=== PATIENT | male | born 1980 ===

== ENCOUNTER 2020-05-29 12:08 | Inpatient (IN) | payer BC ==
[~2020-05-29] VITALS: Ht 170.2 cm; Wt 109.8 kg
[2020-05-29 15:00] VITALS: BP 148/96
[2020-05-29 17:15] VITALS: BP 136/93
--- NOTE | 2020-05-29 17:31 | PCM.HP ---
History of Present Illness Reason for Visit: Transfer from outside ED for bilateral PE's History of Present Illness Pt is a 39 y/o M with no significant past medical history, who presents from outside ED with Bilateral PE's. Pt states for the last 4-5 days he has been increasingly short of breath and easily fatigued. 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 He states that the morning of 05/29 he woke up and exercised a bit, but became intensely short of breath and decided to go to the ED. COVID testing at the ED was negative and a CTA was obtained that revealed multiple bilateral PE's L > R. He was slightly hypoxemic at the outside ED and required 2-3 L O2 to maintain sats. Otherwise, he was afebrile and Hemodynamically stable. He was subsequently transferred to this facility for further management and evaluation given hypoxemia and need for supplemental O2. since arrival here, he has continued to be hypoxemic, but remains afebrile and HDS. He denies symptoms of CP, Palpitations, shob, cough, abdominal pain, n/v/d/c, or urinary symptoms. He denies any recent surgeries, trauma, travel, known malignancies, history of VTE, hormone supplementation, recent immobility, or other risk factors for provoked VTE. He denies any known personal or family history of hypercoagulable disorders, but does note that one of his grandfathers had PE's. He does mention having brief pain in his right calf while walking in his neighborhood at some point in the last week as well as a pain on the inside of his left hip that he could not explain. These were self-limited and resolved fairly quickly, however, and have not been a persistent issue. Review of Systems Constitutional: No: Fever, Chills, Sweats, Weakness, Malaise Eyes: No: Pain, Vision change, Conjunctivae inflammation ENT: No: Ear pain, Ear discharge, Nose pain Respiratory: Shortness of breath, SOB with excertion; No: Cough Cardiovascular: No: Chest Pain, Palpitations, Orthopnea, Paroxysmal Noc. Dyspnea Gastrointestinal: No: Nausea, Vomiting, Abdominal Pain Genitourinary: No Dysuria, No Frequency, No Incontinence Musculoskeletal: No: other, neck pain, shoulder pain, arm pain Skin: No: Rash, Lesions, Jaundice, Bruising Neurological: No: Weakness, Numbness, Incoordination, Change in speech VTE VTE Risk Score VTE Risk: Score 0-1 = Low Risk (Aggressive mobilization; early ambulation; no VTE prophylaxis required) Score 2: Moderate Risk (Intermittent/Pneumatic Compression Device OR Lovenox/Heparin/Coumadin) Score 3-4: High Risk (Intermittent/Pneumatic Compression Device AND Lovenox/Heparin/Coumadin) Score > or =5: Highest Risk (Intermittent/Pneumatic Compression Device AND Lovenox/Heparin/Coumadin) Exam Vital Signs Vital Signs Date Time Temp Pulse Resp B/P (MAP) Pulse Ox O2 Delivery O2 Flow Rate FiO2 05/29/20 17:16 Nasal Cannula 2.00 05/29/20 15:00 98.9 60 16 148/96 (113) 99 General Appearance: Alert, Oriented X3, Cooperative, No acute distress HEENT: Atraumatic, PERRLA Respiratory: Clear to auscultation, Normal air movement Cardiovascular: Regular rate, Normal S1, Normal S2 Abdominal: Normal bowel sounds, Soft, No tenderness Extremities: No clubbing, No cyanosis, No edema Skin: No rash Neuro: Normal speech, Strength at 5/5 X4 ext, Normal tone, Sensation intact Psych/Mental Status: Mental status NL, Mood NL Assessment/Plan Assessment/Plan Assessment/Plan Pt is a 39 y/o M with no significant past medical history, who presents from outside ED with Bilateral PE's. There does not appear to be an obvious provoking factor to his PE, so I would consider these to be unprovoked until proven otherwise. He has no known history of hypercoagulable disorders. He was started on Lovenox at the outside ED and continued on admission here. He remains hypoxemic, but is otherwise afebrile and hemodynamically stable # Acute Bilateral Pulmonary Embolisms # Acute Hypoxemic respiratory failure - admit to inpatient medicine - Start Lovenox 1mg/kg BID for AC; Pt can be transitioned to DOAC on discharge - wean supplemental O2 as tolerated - obtain b/l DVT US - Pt will need to be on at least 3 months of AC on discharge. He can follow up with Hematology in outpatient setting for further workup for hypercoagulable disorders and decisions on need for lifelong anticoagulation VTE: Therapeutic Lovenox GI: none CODE: Full AUDELIA JEAN MD May 29, 2020 17:31
--- NOTE | 2020-05-29 17:47 | NUR ---
Patient received in bed aox 4 transported in by EMS. patient transfered to bed in stable condition. Assessment completed no sign of distress noted. Vitals stable 148/96bp 98.9 temp 60hr 99% on 2l nc resp 22. lungs clear breathing even unlabored. Patient oriented to room, verbalize understanding. safety measures in place, patient connected to cardiac cath tech. Will continue to monitor..fundraising specialist RN
[2020-05-29] MEDS ORDERED: VENTOLIN IH PRN ×2 (18:00→20:01)
[2020-05-29 20:23] VITALS: BP 107/71
[2020-05-29] MEDS: LOVENOX SQ SCH (21:00)
[2020-05-30 00:15] VITALS: BP 125/78
[2020-05-30 05:03] VITALS: BP 132/84
[2020-05-30 07:10] LABS: BASOPHIL % 0.5 % (0.0-0.2); EOSINOPHIL # 0.2 10^3/uL (0.0-0.2); LYMPHOCYTES # 1.94 10^3/uL1 (1.0-4.8); LYMPHOCYTES % 30.2 % (24.0-44.0); MEAN CORP HGB 30.8 pg (26-34); MONOCYTES # 0.5 10^3/uL (0.3-0.8); MONOCYTES % 7.2 % (5.0-12.0); NEUTROPHIL # 3.8 10^3/uL (1.8-7.7); NEUTROPHILS % 59.1 % (41.0-85.0); PLATELET COUNT 148 10^3/uL (150-400); RED CELL DISTRIBUTION WIDTH 12.1 % (11.5-14.5)
[2020-05-30 07:20] LABS: CALCIUM 9.3 mg/dL (8.4-10.5); CARBON DIOXIDE 29.5 mmol/L (20.0-32)
[2020-05-30 07:25] VITALS: BP 127/81
[2020-05-30] MEDS ORDERED: LOVENOX SQ ONE (08:02)
[2020-05-30] MEDS: LOVENOX SQ SCH ×2 (08:12→21:25)
[2020-05-30 12:20] VITALS: BP 127/84
--- NOTE | 2020-05-30 13:05 | PRM.PN ---
Subjective Subjective Date: May 30, 2020 Time: 09:40 Subjective 39-year-old male presented to ED with bilateral PEs. Initiated on Lovenox 1 mg/kg twice daily. Patient notes that approximately 4 to 5 days ago had increasing shortness of breath with activities and taking a shower patient did also note that he had some soreness to left inner thigh and calf at that time. 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 These bilateral PEs evidenced by CTA chest. Patient remains afebrile, hemodynamically stable no difficulty with respiratory function continue to monitor and evaluate for hypoxemia. Hemodynamically stable. Will initiate p.o. anticoagulation in a.m. VTE VTE Risk Score VTE Risk: Score 0-1 = Low Risk (Aggressive mobilization; early ambulation; no VTE prophylaxis required) Score 2: Moderate Risk (Intermittent/Pneumatic Compression Device OR Lovenox/Heparin/Coumadin) Score 3-4: High Risk (Intermittent/Pneumatic Compression Device AND Lovenox/Heparin/Coumadin) Score > or =5: Highest Risk (Intermittent/Pneumatic Compression Device AND Lovenox/Heparin/Coumadin) Antico:Hep/LMWH/Coum/Xarelto: Yes Review of Systems Constitutional: No: Fever, Chills, Sweats, Weakness, Malaise Eyes: No: Pain, Vision change, Conjunctivae inflammation ENT: No: Ear pain, Ear discharge, Nose pain Respiratory: Shortness of breath, SOB with excertion; No: Cough, Dry Cardiovascular: No: Chest Pain, Palpitations, Orthopnea, Paroxysmal Noc. Dyspnea Gastrointestinal: No: Nausea, Vomiting, Abdominal Pain Genitourinary: No Dysuria, No Frequency, No Incontinence Musculoskeletal: No: other, neck pain, shoulder pain, arm pain Skin: No: Rash, Lesions, Jaundice, Bruising Neurological: No: Weakness, Numbness, Incoordination, Change in speech Allergies: Coded Allergies: No Known Allergies (Unverified , 05/30/20) Objective Vitals and I/O Vital Sign - Last 24 Hours 05/29/20 05/29/20 05/29/20 05/29/20 15:00 17:15 17:16 20:03 Temp 98.9 98.3 Pulse 60 54 54 Resp 16 18 18 B/P (MAP) 148/96 (113) 136/93 (107) Pulse Ox 99 96 96 O2 Delivery Nasal Canula Nasal Canula Nasal Cannula Nasal Cannula O2 Flow Rate 2.00 2.00 2.00 2.00 FiO2 28 05/29/20 05/29/20 05/29/20 05/30/20 20:04 20:23 20:35 00:15 Temp 98.2 98.0 Pulse 68 87 64 Resp 18 18 18 19 B/P (MAP) 107/71 (83) 125/78 (94) Pulse Ox 96 95 96 95 O2 Delivery Nasal Cannula O2 Flow Rate 2.00 FiO2 28 05/30/20 05/30/20 05/30/20 05/30/20 02:56 03:01 03:03 05:03 Temp 97.4 Pulse 60 Resp 18 B/P (MAP) 132/84 (100) Pulse Ox 65 97 O2 Delivery Nasal Cannula Nasal Cannula Nasal Cannula O2 Flow Rate 2.00 2.00 FiO2 65 05/30/20 05/30/20 07:25 09:52 Temp 98.4 Pulse 68 Resp 18 B/P (MAP) 127/81 (96) Pulse Ox 94 O2 Delivery Room Air Room Air General: Alert, Oriented X3, Cooperative, No acute distress HEENT: Atraumatic, PERRLA Neck: Supple, No JVD Lungs: Clear to auscultation, Normal air movement Heart: Regular rate, Normal S1, Normal S2 Abdomen: Normal bowel sounds, Soft, No tenderness Extremities: No clubbing, No cyanosis, No edema Neuro: Normal speech, Strength at 5/5 X4 ext, Normal tone, Sensation intact Psych/Mental Status: Mental status NL, Mood NL All Results(Lab/Rad) Laboratory Tests Test 05/30/20 06:10 White Blood Count 6.4 10^3/uL Red Blood Count 4.64 10^6/uL Hemoglobin 14.3 g/dL Hematocrit 41.6 % Mean Corpuscular Volume 89.7 fL Mean Corpuscular Hemoglobin 30.8 pg Mean Corpuscular Hemoglobin Concent 34.4 g/dL Red Cell Distribution Width 12.1 % Platelet Count 148 10^3/uL Mean Platelet Volume 10.6 fL Neutrophils (%) (Auto) 59.1 % Lymphocytes (%) (Auto) 30.2 % Monocytes (%) (Auto) 7.2 % Neutrophils # (Auto) 3.8 10^3/uL Lymphocytes # (Auto) 1.94 10^3/uL1 Monocytes # (Auto) 0.5 10^3/uL Absolute Immature Granulocyte (auto 0 10^3 u/L Absolute Eosinophils (auto) 0.2 10^3/uL Immature Granulocytes % 0.00 % Eosinophils % 3.0 % Basophils % 0.5 % Basophils # 0.0 10^3/uL Sodium Level 142 mmol/L Potassium Level 3.6 mmol/L Chloride Level 104.0 mmol/L Carbon Dioxide Level 29.5 mmol/L Anion Gap 12.1 Blood Urea Nitrogen 12 mg/dL Creatinine 1.25 mg/dL Estimated GFR () 77.8 Est GFR (CKD-EPI)(Non-Afr Faroese) 64.3 BUN/Creatinine Ratio 9.0 Glucose Level 94 mg/dL Calcium Level 9.3 mg/dL Phosphorus Level 3.8 mg/dL Magnesium Level 1.9 mg/dL Total Bilirubin 0.8 mg/dL Aspartate Amino Transf (AST/SGOT) 22 U/L Alanine Aminotransferase (ALT/SGPT) 14 U/L Alkaline Phosphatase 50 U/L Total Protein 7.3 g/dL Albumin 3.9 g/dL Globulin 3.4 Albumin/Globulin Ratio 1.147 Current Medications Medications (Trade) Dose Ordered Sig/Giselle Route PRN Reason Start Time Stop Time Status Last Admin Dose Admin Albuterol Sulfate (Ventolin) 2.5 mg RTQ2 PRN IH SHORTNESS OF BREATH 05/29/20 18:00 05/29/20 20:01 DC Enoxaparin Sodium (Lovenox) 110 mg BID SQ 05/29/20 21:00 06/28/20 20:59 05/30/20 08:12 Albuterol Sulfate (Ventolin) 2.5 mg RTQ2 PRN IH SHORTNESS OF BREATH 05/29/20 20:01 06/28/20 17:59 Enoxaparin Sodium (Lovenox) 120 mg STK-MED ONCE SQ 05/30/20 08:02 05/30/20 08:04 DC Course Sepsis Screening Results: Posi: NEGATIVE Sepsis Qualifier/Stage: NO DEFINITE RISK Vitals & review Data Vital Sign - Last 24 Hours 05/29/20 05/29/20 05/29/20 05/29/20 15:00 17:15 17:16 20:03 Temp 98.9 98.3 Pulse 60 54 54 Resp 16 18 18 B/P (MAP) 148/96 (113) 136/93 (107) Pulse Ox 99 96 96 O2 Delivery Nasal Canula Nasal Canula Nasal Cannula Nasal Cannula O2 Flow Rate 2.00 2.00 2.00 2.00 FiO2 28 05/29/20 05/29/20 05/29/20 05/30/20 20:04 20:23 20:35 00:15 Temp 98.2 98.0 Pulse 68 87 64 Resp 18 18 18 19 B/P (MAP) 107/71 (83) 125/78 (94) Pulse Ox 96 95 96 95 O2 Delivery Nasal Cannula O2 Flow Rate 2.00 FiO2 28 05/30/20 05/30/20 05/30/20 05/30/20 02:56 03:01 03:03 05:03 Temp 97.4 Pulse 60 Resp 18 B/P (MAP) 132/84 (100) Pulse Ox 65 97 O2 Delivery Nasal Cannula Nasal Cannula Nasal Cannula O2 Flow Rate 2.00 2.00 FiO2 65 05/30/20 05/30/20 07:25 09:52 Temp 98.4 Pulse 68 Resp 18 B/P (MAP) 127/81 (96) Pulse Ox 94 O2 Delivery Room Air Room Air Laboratory Tests Test 05/30/20 06:10 White Blood Count 6.4 10^3/uL Red Blood Count 4.64 10^6/uL Hemoglobin 14.3 g/dL Hematocrit 41.6 % Mean Corpuscular Volume 89.7 fL Mean Corpuscular Hemoglobin 30.8 pg Mean Corpuscular Hemoglobin Concent 34.4 g/dL Red Cell Distribution Width 12.1 % Platelet Count 148 10^3/uL Mean Platelet Volume 10.6 fL Neutrophils (%) (Auto) 59.1 % Lymphocytes (%) (Auto) 30.2 % Monocytes (%) (Auto) 7.2 % Neutrophils # (Auto) 3.8 10^3/uL Lymphocytes # (Auto) 1.94 10^3/uL1 Monocytes # (Auto) 0.5 10^3/uL Absolute Immature Granulocyte (auto 0 10^3 u/L Absolute Eosinophils (auto) 0.2 10^3/uL Immature Granulocytes % 0.00 % Eosinophils % 3.0 % Basophils % 0.5 % Basophils # 0.0 10^3/uL Sodium Level 142 mmol/L Potassium Level 3.6 mmol/L Chloride Level 104.0 mmol/L Carbon Dioxide Level 29.5 mmol/L Anion Gap 12.1 Blood Urea Nitrogen 12 mg/dL Creatinine 1.25 mg/dL Estimated GFR () 77.8 Est GFR (CKD-EPI)(Non-Afr Faroese) 64.3 BUN/Creatinine Ratio 9.0 Glucose Level 94 mg/dL Calcium Level 9.3 mg/dL Phosphorus Level 3.8 mg/dL Magnesium Level 1.9 mg/dL Total Bilirubin 0.8 mg/dL Aspartate Amino Transf (AST/SGOT) 22 U/L Alanine Aminotransferase (ALT/SGPT) 14 U/L Alkaline Phosphatase 50 U/L Total Protein 7.3 g/dL Albumin 3.9 g/dL Globulin 3.4 Albumin/Globulin Ratio 1.147 Current Medications Medications (Trade) Dose Ordered Sig/Giselle PRN Reason Start Time Stop Time Status Last Admin Albuterol Sulfate (Ventolin) 2.5 mg RTQ2 PRN SHORTNESS OF BREATH 05/29/20 20:01 06/28/20 17:59 Enoxaparin Sodium (Lovenox) 110 mg BID 05/29/20 21:00 06/28/20 20:59 05/30/20 08:12 LEVEL 1 SEPSIS INFECTION CRITE: None/Not assessed LEVEL 2-SIRS (LIST ALL THAT AP: None/Not assessed Cardiovascular Evidence: Not Assessed or None Hematologic Evidence: None/Not assessed Hepatic Evidence: None/Not assessed Metabolic Evidence: None/Not assessed Neurological Evidence: None/Not assessed Respiratory Evidence: None/Not assessed Renal Evidence: None/Not assessed O2 Sat by Pulse Oximetry: 94 Oxygen Flow Rate: 2.00 Assessment/Plan Assessment/Plan Assessment/Plan Pt is a 39 y/o M with no significant past medical history, Patient does note that several siblings and family members also have been previously diagnosed with PEs.Patient presented from outside ED with Bilateral PE's. T He has no known history of hypercoagulable disorders. He was started on Lovenox at the outside ED and continued on admission here. Patient oxygen saturation remains mid to high 90s on room air Plan Acute Bilateral Pulmonary Embolisms - Continue Lovenox 1mg/kg BID for AC; Pt can be transitioned to DOAC on discharge, Likely tomorrow - Patient on room air - obtain b/l DVT US - Pt will need to be on at least 3 months of AC on discharge. He can follow up with Hematology in outpatient setting for further workup for hypercoagulable disorders and decisions on need for lifelong anticoagulation Acute respiratory failure -Resolved -High 90s room air will obtain ambulation test VTE: Therapeutic Lovenox GI: none CODE: Full pt seen and examined and note [id number] and agree with assessment and plan of AYESHA foster. pt counseeled and questions answered regarding hematology and f/u. DILLAN FOSTER NP May 30, 2020 13:05 JOCE MONTANA MD May 30, 2020 14:21
--- NOTE | 2020-05-30 18:01 | DIREP ---
PROCEDURE:US VENOUS IMAGING BILAT COMPARISON:None. INDICATIONS:Acute PE; unknown source, LLE TIGHTNESS TECHNIQUE:The lower extremities were evaluated utilizing weiner scale images with segmental compression, color Doppler, and spectral Doppler with respiratory variation and augmentation. FINDINGS: RIGHT Common femoral vein:Patent Profunda femoris vein: Patent Superficial femoral vein:Patent Popliteal vein:Patent Posterior tibial vein:Patent Peroneal vein:Patent Saphenofemoral junction:Patent Waveforms: Within normal limits. LEFT Common femoral vein:Patent Profunda femoris vein: Patent Superficial femoral vein:Acute occlusive thrombosis throughout the left superficial femoral vein. Popliteal vein:Patent Posterior tibial vein:Patent Peroneal vein:Patent Saphenofemoral junction:Patent Waveforms: No color Doppler flow within the left proximal, mid, or distal superficial femoral vein. Otherwise normal limits. CONCLUSION: 1. Acute occlusive DVT proximal through distal left superficial femoral vein. 2. No DVT within the remainder the left lower extremity vessels. 3. No evidence of DVT within the right lower extremity. 4. This report was called by telephone at 5:59 pm on May 30, 2020 to Delbert nurse caring for the patient. Dictated by: YOANDY Physician on 05/30/2020 at 05:22 PM ac
[2020-05-30 20:48] VITALS: BP 125/77
[2020-05-31 00:31] VITALS: BP 122/63
[2020-05-31 04:39] VITALS: BP 101/57
--- NOTE | 2020-05-31 08:15 | NUR ---
REPORT RECEIVED REPORT AND ASSUMED CARE OF PT. PT RASHI IN [place] WITH Rosemary HARDWICK RRT.
[2020-05-31 08:30] VITALS: BP 108/60
--- NOTE | 2020-05-31 08:30 | NUR ---
DR GASTON PRESENT @ PTS BEDSIDE DISCUSSING POC WITH PT. QUESTIONS WERE ANSWERD BY
--- NOTE | 2020-05-31 08:31 | NUR ---
BREAKFAST BREAKFAST TRAY SERVED.
--- NOTE | 2020-05-31 09:22 | PRM.PN ---
Subjective Subjective Date: May 31, 2020 Time: 09:20 Subjective pt requiring oxygen this morning. no new chest pain or bleeding. VTE VTE Risk Score VTE Risk: Score 0-1 = Low Risk (Aggressive mobilization; early ambulation; no VTE prophylaxis required) Score 2: Moderate Risk (Intermittent/Pneumatic Compression Device OR Lovenox/Heparin/Coumadin) Score 3-4: High Risk (Intermittent/Pneumatic Compression Device AND Lovenox/Heparin/Coumadin) Score > or =5: Highest Risk (Intermittent/Pneumatic Compression Device AND Lovenox/Heparin/Coumadin) Antico:Hep/LMWH/Coum/Xarelto: Yes Review of Systems Constitutional: No: Fever, Chills, Sweats, Weakness, Malaise Eyes: No: Pain, Vision change, Conjunctivae inflammation ENT: No: Ear pain, Ear discharge, Nose pain Respiratory: Shortness of breath, SOB with excertion; No: Cough, Dry Cardiovascular: No: Chest Pain, Palpitations, Orthopnea, Paroxysmal Noc. Dyspnea Gastrointestinal: No: Nausea, Vomiting, Abdominal Pain Genitourinary: No Dysuria, No Frequency, No Incontinence Musculoskeletal: No: other, neck pain, shoulder pain, arm pain Skin: No: Rash, Lesions, Jaundice, Bruising Neurological: No: Weakness, Numbness, Incoordination, Change in speech Allergies: Coded Allergies: No Known Allergies (Unverified , 05/30/20) Objective Vitals and I/O Vital Sign - Last 24 Hours 05/30/20 05/30/20 05/30/20 05/30/20 09:52 12:20 20:20 20:48 Temp 98.3 97.5 Pulse 81 100 76 Resp 20 18 18 B/P (MAP) 127/84 (98) 125/77 (93) Pulse Ox 92 95 94 O2 Delivery Room Air Room Air Room Air FiO2 21 05/31/20 05/31/20 05/31/20 00:27 00:31 04:39 Temp 97.8 98.3 Pulse 66 75 Resp 18 20 B/P (MAP) 122/63 (82) 101/57 (72) Pulse Ox 96 95 O2 Delivery Room Air Intake and Output 05/31/20 07:00 Intake Total 110 ml Balance 110 ml General: Alert, Oriented X3, Cooperative, No acute distress HEENT: Atraumatic, PERRLA Neck: Supple, No JVD Lungs: Normal air movement Abdomen: Soft, No tenderness Extremities: No cyanosis, No edema Neuro: Normal speech, Strength at 5/5 X4 ext, Normal tone, Sensation intact Psych/Mental Status: Mental status NL, Mood NL All Results(Lab/Rad) Laboratory Tests Test 05/30/20 06:10 White Blood Count 6.4 10^3/uL Red Blood Count 4.64 10^6/uL Hemoglobin 14.3 g/dL Hematocrit 41.6 % Mean Corpuscular Volume 89.7 fL Mean Corpuscular Hemoglobin 30.8 pg Mean Corpuscular Hemoglobin Concent 34.4 g/dL Red Cell Distribution Width 12.1 % Platelet Count 148 10^3/uL Mean Platelet Volume 10.6 fL Neutrophils (%) (Auto) 59.1 % Lymphocytes (%) (Auto) 30.2 % Monocytes (%) (Auto) 7.2 % Neutrophils # (Auto) 3.8 10^3/uL Lymphocytes # (Auto) 1.94 10^3/uL1 Monocytes # (Auto) 0.5 10^3/uL Absolute Immature Granulocyte (auto 0 10^3 u/L Absolute Eosinophils (auto) 0.2 10^3/uL Immature Granulocytes % 0.00 % Eosinophils % 3.0 % Basophils % 0.5 % Basophils # 0.0 10^3/uL Sodium Level 142 mmol/L Potassium Level 3.6 mmol/L Chloride Level 104.0 mmol/L Carbon Dioxide Level 29.5 mmol/L Anion Gap 12.1 Blood Urea Nitrogen 12 mg/dL Creatinine 1.25 mg/dL Estimated GFR () 77.8 Est GFR (CKD-EPI)(Non-Afr Faroese) 64.3 BUN/Creatinine Ratio 9.0 Glucose Level 94 mg/dL Calcium Level 9.3 mg/dL Phosphorus Level 3.8 mg/dL Magnesium Level 1.9 mg/dL Total Bilirubin 0.8 mg/dL Aspartate Amino Transf (AST/SGOT) 22 U/L Alanine Aminotransferase (ALT/SGPT) 14 U/L Alkaline Phosphatase 50 U/L Total Protein 7.3 g/dL Albumin 3.9 g/dL Globulin 3.4 Albumin/Globulin Ratio 1.147 Current Medications Medications (Trade) Dose Ordered Sig/Giselle Route PRN Reason Start Time Stop Time Status Last Admin Dose Admin Albuterol Sulfate (Ventolin) 2.5 mg RTQ2 PRN IH SHORTNESS OF BREATH 05/29/20 18:00 05/29/20 20:01 DC Enoxaparin Sodium (Lovenox) 110 mg BID SQ 05/29/20 21:00 06/28/20 20:59 05/30/20 08:12 Albuterol Sulfate (Ventolin) 2.5 mg RTQ2 PRN IH SHORTNESS OF BREATH 05/29/20 20:01 06/28/20 17:59 Enoxaparin Sodium (Lovenox) 120 mg STK-MED ONCE SQ 05/30/20 08:02 05/30/20 08:04 DC Course Sepsis Screening Results: Posi: NEGATIVE Sepsis Qualifier/Stage: NO DEFINITE RISK Vitals & review Data Vital Sign - Last 24 Hours 05/29/20 05/29/20 05/29/20 05/29/20 15:00 17:15 17:16 20:03 Temp 98.9 98.3 Pulse 60 54 54 Resp 16 18 18 B/P (MAP) 148/96 (113) 136/93 (107) Pulse Ox 99 96 96 O2 Delivery Nasal Canula Nasal Canula Nasal Cannula Nasal Cannula O2 Flow Rate 2.00 2.00 2.00 2.00 FiO2 28 05/29/20 05/29/20 05/29/20 05/30/20 20:04 20:23 20:35 00:15 Temp 98.2 98.0 Pulse 68 87 64 Resp 18 18 18 19 B/P (MAP) 107/71 (83) 125/78 (94) Pulse Ox 96 95 96 95 O2 Delivery Nasal Cannula O2 Flow Rate 2.00 FiO2 28 05/30/20 05/30/20 05/30/20 05/30/20 02:56 03:01 03:03 05:03 Temp 97.4 Pulse 60 Resp 18 B/P (MAP) 132/84 (100) Pulse Ox 65 97 O2 Delivery Nasal Cannula Nasal Cannula Nasal Cannula O2 Flow Rate 2.00 2.00 FiO2 65 05/30/20 05/30/20 07:25 09:52 Temp 98.4 Pulse 68 Resp 18 B/P (MAP) 127/81 (96) Pulse Ox 94 O2 Delivery Room Air Room Air Laboratory Tests Test 05/30/20 06:10 White Blood Count 6.4 10^3/uL Red Blood Count 4.64 10^6/uL Hemoglobin 14.3 g/dL Hematocrit 41.6 % Mean Corpuscular Volume 89.7 fL Mean Corpuscular Hemoglobin 30.8 pg Mean Corpuscular Hemoglobin Concent 34.4 g/dL Red Cell Distribution Width 12.1 % Platelet Count 148 10^3/uL Mean Platelet Volume 10.6 fL Neutrophils (%) (Auto) 59.1 % Lymphocytes (%) (Auto) 30.2 % Monocytes (%) (Auto) 7.2 % Neutrophils # (Auto) 3.8 10^3/uL Lymphocytes # (Auto) 1.94 10^3/uL1 Monocytes # (Auto) 0.5 10^3/uL Absolute Immature Granulocyte (auto 0 10^3 u/L Absolute Eosinophils (auto) 0.2 10^3/uL Immature Granulocytes % 0.00 % Eosinophils % 3.0 % Basophils % 0.5 % Basophils # 0.0 10^3/uL Sodium Level 142 mmol/L Potassium Level 3.6 mmol/L Chloride Level 104.0 mmol/L Carbon Dioxide Level 29.5 mmol/L Anion Gap 12.1 Blood Urea Nitrogen 12 mg/dL Creatinine 1.25 mg/dL Estimated GFR () 77.8 Est GFR (CKD-EPI)(Non-Afr Faroese) 64.3 BUN/Creatinine Ratio 9.0 Glucose Level 94 mg/dL Calcium Level 9.3 mg/dL Phosphorus Level 3.8 mg/dL Magnesium Level 1.9 mg/dL Total Bilirubin 0.8 mg/dL Aspartate Amino Transf (AST/SGOT) 22 U/L Alanine Aminotransferase (ALT/SGPT) 14 U/L Alkaline Phosphatase 50 U/L Total Protein 7.3 g/dL Albumin 3.9 g/dL Globulin 3.4 Albumin/Globulin Ratio 1.147 Current Medications Medications (Trade) Dose Ordered Sig/Giselle PRN Reason Start Time Stop Time Status Last Admin Albuterol Sulfate (Ventolin) 2.5 mg RTQ2 PRN SHORTNESS OF BREATH 05/29/20 20:01 06/28/20 17:59 Enoxaparin Sodium (Lovenox) 110 mg BID 05/29/20 21:00 06/28/20 20:59 05/30/20 08:12 LEVEL 1 SEPSIS INFECTION CRITE: None/Not assessed LEVEL 2-SIRS (LIST ALL THAT AP: None/Not assessed Cardiovascular Evidence: Not Assessed or None Hematologic Evidence: None/Not assessed Hepatic Evidence: None/Not assessed Metabolic Evidence: None/Not assessed Neurological Evidence: None/Not assessed Respiratory Evidence: None/Not assessed Renal Evidence: None/Not assessed O2 Sat by Pulse Oximetry: 95 Oxygen Flow Rate: 2.00 Assessment/Plan Assessment/Plan Assessment/Plan Acute Bilateral Pulmonary Embolisms - Continue Lovenox 1mg/kg BID for AC; now requiring oxygen. DVT LLE - Pt will need to be on at least 3 months of AC on discharge. He can follow up with Hematology in outpatient setting for further workup for hypercoagulable disorders and decisions on need for lifelong anticoagulation Acute respiratory failure with hypoxemia. cpap tonight, wean off o2. encourage IS. VTE: Therapeutic Lovenox GI: none CODE: Full Plan Acute Bilateral Pulmonary Embolisms - Continue Lovenox 1mg/kg BID for AC; Pt can be transitioned to DOAC on discharge, Likely tomorrow - Patient on room air - obtain b/l DVT US - Pt will need to be on at least 3 months of AC on discharge. He can follow up with Hematology in outpatient setting for further workup for hypercoagulable disorders and decisions on need for lifelong anticoagulation Acute respiratory failure -Resolved -High 90s room air will obtain ambulation test VTE: Therapeutic Lovenox GI: none CODE: Full pt seen and examined and note [id number] and agree with assessment and plan of AYESHA foster. pt counseeled and questions answered regarding hematology and f/u. JOCE MONTANA MD May 31, 2020 09:22
[2020-05-31] MEDS ORDERED: GENASYME PO PRN (09:30)
[2020-05-31] MEDS ORDERED: MILK OF MAGNESIA PO PRN (09:30)
[2020-05-31] MEDS ORDERED: TYLENOL PO PRN ×2 (09:30)
[2020-05-31] MEDS ORDERED: COLACE PO PRN (09:30)
[2020-05-31] MEDS ORDERED: AMBIEN PO PRN (09:30)
[2020-05-31] MEDS ORDERED: MYLANTA PO PRN (09:30)
[2020-05-31] MEDS ORDERED: XARELTO PO SCH ×2 (09:30→21:00)
[2020-05-31] MEDS ORDERED: LANOLIN HYDROUS TP PRN (09:30)
[2020-05-31 09:47] LABS: MEAN CORP HGB 30.3 pg (26-34); RED CELL DISTRIBUTION WIDTH 11.9 % (11.5-14.5)
--- NOTE | 2020-05-31 11:20 | NUR ---
DISCHARGE PLAN CASE MANAGEMENT VISITED WITH PATIENT AT BEDSIDE CONCERNING DISCHARGE PLAN AND NEEDS. LIVES AT HOME WITH SPOUSE. INDEPENDENT OF ADLS. 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 REQUESTED HOME OXYGEN TO BE SET UP THROUGH [facility]. CM OBTAINED AN ORDER AND FAXED TO [facility] IN [place]. THEN CONTACTED [facility] WITH [facility] ABOUT THE ORDER. DR. LOWERY ALSO REQUESTED PT TO HAVE AN APPOINTMENT SET UP WITH A [facility] [employer] DIE INSPECTOR. PT REQUESTED TO HAVE DR. GRIFFITHS. CM CONTACTED DR. GRIFFITHS'S OFFICE AND AN APPOINTMENT WAS SET UP FOR SATURDAY, May, @ 11:00AM. THEY REQUESTED THE PT TO BE THERE 30 MINUTES PRIOR TO HIS APPOINTMENT DR. GRIFFITHS'S OFFICE # [phone]. CM ALSO PRINTED PT A $10 MONTH COUPON FOR ELIPint Please FOR COMMERCIAL INSURANCE PATIENTS. ALL OF THIS INFORMATION WAS PRESENTED TO PT WITH PRESENT AT BEDSIDE. BOTH VOICED UNDERSTANDING. DC PLAN IS TO DC HOME WITH AND FOLLOW UP WITH DR. GRIFFITHS AN OUTPATIENT. CM LEFT CONTACT INFORMATION AT BEDSIDE AND WILL CONTINUE TO FOLLOW FOR DISCHARGE NEEDS.
--- NOTE | 2020-05-31 11:30 | NUR ---
O2 CHALLENGE SITTING UP IN CHAIR WITH O2 VIA NC AT 2LITERS. O2 SAT 96%. O2 REMOVED FOR 20 MINUTES. O2 SAT 94% ON ROOM AIR. AMBULATED UP AND DOWN HALLWAY APPROXIMATELY 20 FEET ON ROOM AIR. O2 SAT DROPPED TO 84%. O2 @ 2 LITERS REPLACED VIA NC. O2 SAT 96% WHILE SITTING UP IN CHAIR.
--- NOTE | 2020-05-31 11:45 | NUR ---
STATUS PT AMB IN HALLWAY
[2020-05-31] MEDS ORDERED: MELO7.5T31 PO (12:35)
[2020-05-31] MEDS ORDERED: DULO60CA7 PO (12:35)
[2020-05-31] MEDS ORDERED: FENO48TA16 PO (12:35)
[2020-05-31 12:43] VITALS: BP 107/70
--- NOTE | 2020-05-31 12:45 | NUR ---
STATUS SIT UP IN CHAIR EATING LUNCH. DENIES COMPLAINTS. LINENS CHANGED.
--- NOTE | 2020-05-31 14:13 | NUR ---
SHOWER PATIENTS IV WRAPPED FOR SHOWER, TOWELS GIVEN TO PATIENT NO OTHER NEEDS MADE KNOWN AT THIS TIME.
--- NOTE | 2020-05-31 14:50 | NUR ---
STATUS SITTING UP IN BED PLAYING CARDS WITH SPOUSE. DENIES COMPLAINTS
[2020-05-31 17:00] VITALS: BP 104/79
[2020-05-31] MEDS ORDERED: CYMBALTA PO SCH (18:00)
--- NOTE | 2020-05-31 18:00 | NUR ---
STATUS AMB SELF IN [place]. DENIES COMPLAINTS. COFFEE GIVEN
[2020-05-31 19:25] VITALS: BP 132/82
[2020-05-31] MEDS ORDERED: XARELTO ONE (20:18)
[2020-05-31] MEDS: MOBIC PO SCH (20:20)
[2020-06-01 00:34] VITALS: BP 106/69
[2020-06-01 04:33] VITALS: BP 102/61
[2020-06-01 05:48] LABS: MEAN CORP HGB 31.2 pg (26-34); RED CELL DISTRIBUTION WIDTH 11.9 % (11.5-14.5)
[2020-06-01] MEDS ORDERED: XARELTO ONE (08:34)
[2020-06-01] MEDS ORDERED: XARELTO PO SCH (08:46)
[2020-06-01] MEDS: MOBIC PO SCH (08:46)
[2020-06-01] MEDS ORDERED: LOFIBRA PO SCH (09:00)
[2020-06-01] MEDS ORDERED: RIVA10TA PO (10:45)
[2020-06-01] MEDS ORDERED: RIVA20TA PO (10:45)
--- NOTE | 2020-06-01 10:45 | NUR ---
DISCHARGE UPDATE/PORTILLO CM FOLLOWED UP WITH PT AND PROVIDED INFORMATION FOR SAVINGS COUPON TO $10 MONTH FILL FOR XARELTO. [facility] WITH [facility] AT BEDSIDE DELIVERING PORTABLE O2.
--- NOTE | 2020-06-01 11:09 | PRM.DC ---
Subjective Subjective Date of Discharge: Jun 01, 2020 Time of Request to Discharge: 11:01 Subjective 39-year-old gentleman presented to the ED with bilateral PE initiated on Lovenox twice daily transition to Xarelto. Will go home on Xarelto follow-up with PCP and hematology which she has already had a referral set up for an appointment.No acute events overnight vital signs stable no hypoxia able to ambulate without discomfort. Progress Notes Post Op/Hospital Day: Hospital day #: (3) Subjective: No new complaints, Feels better, Voiding w/out difficulty Review of Systems Constitutional: denies no symptoms reported; see HPI; denies chills, denies diaphoresis, denies fever, denies malaise, denies weakness, denies other Eyes: denies no symptoms reported, denies see HPI, denies blindness, denies blurred vision, denies drainage, denies decreased acuity, denies foreign body sensation, denies inflammation, denies pain, denies photophobia, denies previous injury, denies shadows, denies tunnel vision, denies vision change, denies contact lenses, denies glasses, denies other Ears: denies no symptoms reported, denies see HPI, denies dizziness, denies pain, denies tinnitus, denies bloody discharge, denies clear discharge, denies purulent discharge, denies serosanguinous discharge, denies previous injury, denies other Nose: denies no symptoms reported, denies see HPI, denies clots, denies congestion, denies epistaxis, denies pain, denies bloody discharge, denies clear discharge, denies purulent discharge, denies serosanguinous discharge, denies previous injury, denies other Throat: denies no symptoms reported, denies see HPI, denies pain, denies swelling, denies discharge, denies neck stiffness, denies aphonia, denies hoarse, denies muffled, denies painful swallowing, denies difficulty with fluids, denies previous injury, denies other Respiratory: no symptoms reported, see HPI; denies cough, denies orthopnea, denies shortness of breath, denies stridor, denies wheezing, denies other Cardiovascular: denies no symptoms reported, denies see HPI, denies chest pain, denies edema, denies palpitations, denies syncope, denies other Gastrointestinal: denies no symptoms reported, denies see HPI, denies abdominal pain, denies constipation, denies diarrhea, denies nausea, denies vomiting, denies other Musculoskeletal: denies no symptoms reported, denies see HPI, denies back pain, denies gout, denies joint pain, denies joint swelling, denies muscle pain, denies muscle stiffness, denies neck pain, denies other Skin: denies no symptoms reported, denies see HPI, denies change in color, denies change in hair/nails, denies dryness, denies lesions, denies lumps, denies rash, denies other Neurological: denies no symptoms reported, denies see HPI, denies anxiety, denies depressed, denies emotional problems, denies headache, denies numbness, denies paresthesia, denies pre-existing deficit, denies seizure, denies tingling, denies tremors, denies weakness, denies other Hematologic/Lymphatic: denies no symptoms reported, denies see HPI, denies anemia, denies blood clots, denies easy bleeding, denies easy bruising, denies swollen glands, denies other Immunological/Allergic: denies no symptoms reported, denies see HPI, denies food allergy, denies grass allergy, denies mold allergy, denies pollen allergy, denies HIV/AIDS, denies transplant All Other Systems: Reviewed and Negative VTE VTE Risk Score VTE Risk: Score 0-1 = Low Risk (Aggressive mobilization; early ambulation; no VTE prophylaxis required) Score 2: Moderate Risk (Intermittent/Pneumatic Compression Device OR Lovenox/Heparin/Coumadin) Score 3-4: High Risk (Intermittent/Pneumatic Compression Device AND Lovenox/Heparin/Coumadin) Score > or =5: Highest Risk (Intermittent/Pneumatic Compression Device AND Lovenox/Heparin/Coumadin) Antico:Hep/LMWH/Coum/Xarelto: Yes Mechanical device ordered: No Objective Vitals and I/O Vital Sign - Last 24 Hours 05/31/20 05/31/20 05/31/20 05/31/20 12:43 17:00 19:25 19:50 Temp 98.4 98.7 98.7 Pulse 83 82 80 89 Resp 18 17 17 18 B/P (MAP) 107/70 (82) 104/79 (87) 132/82 (99) Pulse Ox 92 97 97 94 O2 Delivery Room Air Room Air Room Air Room Air FiO2 21 05/31/20 05/31/20 06/01/20 06/01/20 21:07 21:12 00:34 04:33 Temp 98.5 98.5 Pulse 80 60 Resp 18 17 17 B/P (MAP) 106/69 (81) 102/61 (75) Pulse Ox 98 97 97 O2 Delivery Room Air Room Air Room Air Room Air 06/01/20 06/01/20 06/01/20 09:33 09:34 10:29 Pulse 75 Resp 16 16 Pulse Ox 94 94 O2 Delivery Room Air Room Air FiO2 21 General: Alert, Oriented X3, Cooperative, No acute distress HEENT: Atraumatic, PERRLA Neck: Supple, No JVD Lungs: Clear to auscultation, Normal air movement Heart: Regular rate, Normal S1 Abdomen: Soft, No tenderness Extremities: No cyanosis, No edema Neuro: Normal speech, Strength at 5/5 X4 ext, Normal tone, Sensation intact Psych/Mental Status: Mental status NL, Mood NL All Results(Lab/Rad) Laboratory Tests Test 05/30/20 06:10 White Blood Count 6.4 10^3/uL Red Blood Count 4.64 10^6/uL Hemoglobin 14.3 g/dL Hematocrit 41.6 % Mean Corpuscular Volume 89.7 fL Mean Corpuscular Hemoglobin 30.8 pg Mean Corpuscular Hemoglobin Concent 34.4 g/dL Red Cell Distribution Width 12.1 % Platelet Count 148 10^3/uL Mean Platelet Volume 10.6 fL Neutrophils (%) (Auto) 59.1 % Lymphocytes (%) (Auto) 30.2 % Monocytes (%) (Auto) 7.2 % Neutrophils # (Auto) 3.8 10^3/uL Lymphocytes # (Auto) 1.94 10^3/uL1 Monocytes # (Auto) 0.5 10^3/uL Absolute Immature Granulocyte (auto 0 10^3 u/L Absolute Eosinophils (auto) 0.2 10^3/uL Immature Granulocytes % 0.00 % Eosinophils % 3.0 % Basophils % 0.5 % Basophils # 0.0 10^3/uL Sodium Level 142 mmol/L Potassium Level 3.6 mmol/L Chloride Level 104.0 mmol/L Carbon Dioxide Level 29.5 mmol/L Anion Gap 12.1 Blood Urea Nitrogen 12 mg/dL Creatinine 1.25 mg/dL Estimated GFR () 77.8 Est GFR (CKD-EPI)(Non-Afr Greenlandic) 64.3 BUN/Creatinine Ratio 9.0 Glucose Level 94 mg/dL Calcium Level 9.3 mg/dL Phosphorus Level 3.8 mg/dL Magnesium Level 1.9 mg/dL Total Bilirubin 0.8 mg/dL Aspartate Amino Transf (AST/SGOT) 22 U/L Alanine Aminotransferase (ALT/SGPT) 14 U/L Alkaline Phosphatase 50 U/L Total Protein 7.3 g/dL Albumin 3.9 g/dL Globulin 3.4 Albumin/Globulin Ratio 1.147 Current Medications Medications (Trade) Dose Ordered Sig/Giselle Route PRN Reason Start Time Stop Time Status Last Admin Dose Admin Albuterol Sulfate (Ventolin) 2.5 mg RTQ2 PRN IH SHORTNESS OF BREATH 05/29/20 18:00 05/29/20 20:01 DC Enoxaparin Sodium (Lovenox) 110 mg BID SQ 05/29/20 21:00 06/28/20 20:59 05/30/20 08:12 Albuterol Sulfate (Ventolin) 2.5 mg RTQ2 PRN IH SHORTNESS OF BREATH 05/29/20 20:01 06/28/20 17:59 Enoxaparin Sodium (Lovenox) 120 mg STK-MED ONCE SQ 05/30/20 08:02 05/30/20 08:04 DC Medication Reconciliation Scheduled Duloxetine Hcl (Cymbalta), 1 CAP PO DAILY24 Fenofibrate Nanocrystallized (Tricor), 1 TAB PO DAILY Rivaroxaban (Xarelto), 15 MG PO BID Rivaroxaban (Xarelto), 20 MG PO DAILY24 Discontinued Medications Meloxicam (Meloxicam), 1 TAB PO QD Discontinued Reason: Discontinue Plan Assessment Assessment/Plan: Acute Bilateral Pulmonary Embolisms - Continue Lovenox 1mg/kg BID for AC; Room air, Transitioned to Xarelto 15 mg p.o. twice daily for 3 weeks then 20 mg daily. DVT LLE - AMbulation test successful in high 90s Acute occlusive DVT proximal through distal left superficial femoral vein. - Pt will need to be on at least 3 months of AC on discharge. He can follow up with Hematology in outpatient setting for further workup for hypercoagulable disorders and decisions on need for lifelong anticoagulation Acute respiratory failure with hypoxemia. resolved weaned o2 encourage IS. VTE: Therapeutic Lovenox then transitioned to Xarelto PO GI: none CODE: Full pt seen and examined and counseled personally, f/u outpt DILLAN GUALLPA NP Jun 01, 2020 11:09 JOCE MONTANA MD Jun 01, 2020 15:20
[2020-06-01 11:12] VITALS: BP 102/61
--- NOTE | 2020-06-01 11:58 | NUR ---
DISCHARGE PATIENT BEING DISCHARGED HOME AT THIS TIME IN STABLE CONDITION. PATIENT DENIES ANY ADDITIONAL NEEDS AT THIS TIME. [facility] PORTABLE OXYGEN DELIVERED. PATIENT WAS ASSISTED DOWNSTAIRS TO PRIVATE VEHICLE VIA WHEELCHAIR BY HOSPITAL PERSONNEL. RELINQUISHED CARE FOR PATIENT AT THIS TIME.
== END 2020-06-01 12:01 | disposition home or self-care (01) | DRG 175 ==
LOC: MS 12:08
PROVIDERS: ADMIT Internal Medicine; ATTEND Internal Medicine
DX: I26.99 Other pulmonary embolism without acute cor pulmonale (principal); J96.01 Acute respiratory failure with hypoxia; I82.412 Acute embolism and thrombosis of left femoral vein
CPT/HCPCS: 36415; 80053; 83735; 84100; 85025; 85027; 93970; G0378; J1650; J8499